=== PATIENT | female | born 1945 | race African-American/Black ===

== ENCOUNTER 2017-08-25 12:01 | Emergency (ER) | payer OTHER ==
[~2017-08-25] VITALS: Ht 175.3 cm; Wt 84.0 kg
[~2017-08-25 12:01] MED LIST: AMLO10 PO; DYAZ37.52 PO; VITAMINS
[2017-08-25 12:57] VITALS: BP 144/69; PULSE 59; RESP 18; TEMP 98.6; O2SAT 94
--- NOTE | 2017-08-25 13:37 | PD ---
HPI Chief Complaint: Dizziness Time Seen by Provider: 13:09 Travel History International Travel<30 days: No Contact w/Intl Traveler<30days: No Traveled to known affect area: No History of Present Illness HPI 72-year-old female that presents to the ED for evaluation of dizziness. Patient had a dizzy spell where she felt lightheaded like she was given pain that lasted for about 5 minutes. Per patient he went away on its own. 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 She was able to lay down and the symptoms improve on their own. She did not lose consciousness. She denies ever having anything like this before. Per patient she did eat a full meal today. She denies any history of diabetes. She denies any history of cardiac disease or stroke. No blood thinner use. No head injury or loss of consciousness. Patient is completely is symptomatic at this time. No numbness, tingling, weakness. No urinary or bowel movement issues. No pain of any kind. Has not seen anybody for this. Was brought here by ambulance for evaluation of this. Denies any chest pain or shortness of breath. PFSH Past Medical History Heart Rhythm Problems: No Cardiac Catheterization: No Cardiovascular Problems: No High Cholesterol: Yes Congestive Heart Failure: No Diabetes: No Hypertension: Yes Myocardial Infarction: No ?: Not Past Surgical History Appendectomy: Yes Coronary Artery Bypass Graft: No Social History Alcohol Use: No Tobacco Use: Yes (10 CIGARETTES A DAY) Substance Use: No Allergies-Medications (Allergen,Severity, Reaction): Coded Allergies: No Known Allergies (Verified , 01/11/11) Reported Meds & Prescriptions Reported Meds & Active Scripts Active Reported Norvasc (Amlodipine Besylate) 10 Mg Tab 10 Mg PO DAILY [Vitamins] Dyazide (Triamterene/HCTZ) 37.5 Mg/25 Mg Cap 1 Cap PO DAILY 37.5/25 Review of Systems Except as stated in HPI: all other systems reviewed are Neg Physical Exam Narrative GENERAL: SKIN: Warm and dry. HEAD: Atraumatic. Normocephalic. EYES: Pupils equal and round. No scleral icterus. No injection or drainage. ENT: No nasal bleeding or discharge. Mucous membranes pink and moist. Tongue is midline. No uvula deviation. NECK: Trachea midline. No JVD. CARDIOVASCULAR: Regular rate and rhythm. No murmurs, S3, S4. RESPIRATORY: No accessory muscle use. Clear to auscultation. Breath sounds equal bilaterally. GASTROINTESTINAL: Abdomen soft, non-tender, nondistended. Hepatic and splenic margins not palpable. MUSCULOSKELETAL: Extremities without clubbing, cyanosis, or edema. No obvious deformities. Full range of motion of the upper and lower extremities bilaterally. 2+ pulses bilaterally. NEUROLOGICAL: Awake and alert. No obvious cranial nerve deficits. Motor grossly within normal limits. Five out of 5 muscle strength in the arms and legs. Normal speech. PSYCHIATRIC: Appropriate mood and affect; insight and judgment normal. Data Data Last Documented VS Vital Signs Date Time Temp Pulse Resp B/P (MAP) Pulse Ox O2 Delivery O2 Flow Rate FiO2 08/25/17 12:57 98.6 59 18 144/69 (94) 94 Orders Orders Electrocardiogram (08/25/17 13:18) Complete Blood Count With Diff (08/25/17 13:18) Comprehensive Metabolic Panel (08/25/17 13:18) Ckmb (Isoenzyme) Profile (08/25/17 13:18) Troponin I (08/25/17 13:18) Prothrombin Time / Inr (Pt) (08/25/17 13:18) Act Partial Throm Time (Ptt) (08/25/17 13:18) Urinalysis - C+S If Indicated (08/25/17 13:18) Magnesium (Mg) (08/25/17 13:18) Thyroid Stimulating Hormone (08/25/17 13:18) Chest, Single Ap (08/25/17 13:18) Ct Brain W/O Iv Contrast(Rout) (08/25/17 13:18) Iv Access Insert/Monitor (08/25/17 13:18) Ecg Monitoring (08/25/17 13:18) Oximetry (08/25/17 13:18) Orthostatic Vital Signs (08/25/17 13:18) MDM Medical Decision Making Medical Screen Exam Complete: Yes Emergency Medical Condition: Yes Medical Record Reviewed: Yes Differential Diagnosis Syncope versus presyncope versus dizziness versus lightheadedness versus vasovagal episode versus cardiac syncope Narrative Course 72-year-old female that presents to the ED for evaluation of dizziness. Patient was properly examined and was found to have signs and symptoms consistent appears to be lightheadedness. Unclear etiology. Patient does have some comorbidities. Labs and imaging were ordered. Patient will be signed out to incoming provider pending disposition and plan. Alberto More Aug 25, 2017 13:37
--- NOTE | 2017-08-25 13:40 | RADRPT ---
EXAM DATE/TIME: 08/25/2017 13:27 [facility] COMPARISON: No previous studies available for comparison. INDICATIONS : Dizziness. MEDICAL HISTORY : None. SURGICAL HISTORY : None. ENCOUNTER: Initial ACUITY: 1 day PAIN SCORE: 0/10 LOCATION: Bilateral chest FINDINGS: A single view of the chest demonstrates the lungs to be symmetrically aerated without evidence of mas s, infiltrate or effusion. Hyperaeration bilaterally. The cardiomediastinal contours are unremarkabl e. Osseous structures are intact. CONCLUSION: No acute disease. Cameron Vega MD on August 25, 2017 at 13:38 Board Certified Radiologist. This report was verified electronically.
--- NOTE | 2017-08-25 13:50 | RADRPT ---
EXAM DATE/TIME: 08/25/2017 13:32 [facility] COMPARISON: No previous studies available for comparison. INDICATIONS : Syncope, dizziness RADIATION DOSE: 56.35 CTDIvol (mGy) MEDICAL HISTORY : Hypertension. SURGICAL HISTORY : None. ENCOUNTER: Initial ACUITY: 1 day PAIN SCALE: 0/10 LOCATION: cranial TECHNIQUE: Multiple contiguous axial images were obtained of the head. Using automated exposure control and adj ustment of the mA and/or kV according to patient size, radiation dose was kept as low as reasonably a chievable to obtain optimal diagnostic quality images. DICOM format image data is available electro nically for review and comparison. FINDINGS: CEREBRUM: The ventricles are normal for age. There is decreased attenuation in the periventricular white matter most consistent with moderate microvascular ischemic demyelinative change. No evidence of midline sh ift, mass lesion, hemorrhage or acute infarction. No extra-axial fluid collections are seen. POSTERIOR FOSSA: The cerebellum and brainstem are intact. The 4th ventricle is midline. The cerebellopontine angle i s unremarkable. EXTRACRANIAL: The visualized portion of the orbits is intact. SKULL: The calvaria is intact. No evidence of skull fracture. CONCLUSION: 1. Moderate microvascular ischemic demyelinative change. No acute intracranial abnormality identified . Enrique Montano MD on August 25, 2017 at 13:46 Board Certified Radiologist. This report was verified electronically.
[2017-08-25 14:16] LABS: AUTOMATED NEUTROPHIL # 4.8 TH/MM3 (1.8-7.7); BASOPHIL # 0.1 TH/MM3 (0-0.2); BASOPHIL % 1.1 % (0.0-2.0); EOSINOPHIL # 0.5 TH/MM3 (0-0.4); EOSINOPHIL % 6.6 % (0.0-4.0); HEMATOCRIT 41.8 % (35.0-46.0); HEMOGLOBIN 13.8 GM/DL (11.6-15.3); LYMPH % 21.8 % (9.0-44.0); LYMPHOCYTE # 1.7 TH/MM3 (1.0-4.8); MEAN CELL VOLUME 90.2 FL (80.0-100.0); MEAN CORPUSCULAR HEMOGLOBIN 29.8 PG (27.0-34.0); MEAN CORPUSCULAR HGB CONC 33.1 % (32.0-36.0); MEAN PLATELET VOLUME 8.4 FL (7.0-11.0); MONO % 7.9 % (0.0-8.0); MONOCYTE # 0.6 TH/MM3 (0-0.9); NEUT % 62.6 % (16.0-70.0); PLATELET COUNT 222 TH/MM3 (150-450); RED BLOOD COUNT 4.63 MIL/MM3 (4.00-5.30); RED CELL DISTRIBUTION WIDTH 14.7 % (11.6-17.2); WHITE BLOOD COUNT 7.6 TH/MM3 (4.0-11.0)
[2017-08-25 14:31] LABS: INTERNATIONAL NORMALIZED RATIO 0.9 RATIO; PROTHROMBIN TIME - PATIENT 9.6 SEC (9.8-11.6)
[2017-08-25 14:35] LABS: ALBUMIN 3.9 GM/DL (3.4-5.0); AST (GOT) 29 U/L (15-37); BICARBONATE 24.6 MEQ/L (21.0-32.0); BLOOD UREA NITROGEN 24 MG/DL (7-18); CALCIUM 9.8 MG/DL (8.5-10.1); CHLORIDE 107 MEQ/L (98-107); CREATININE 0.91 MG/DL (0.50-1.00); GLOMERULAR FILTRATION RATE 73 ML/MIN (>89); GLUCOSE,RANDOM 99 MG/DL (74-106); SODIUM (NA) 140 MEQ/L (136-145)
[2017-08-25 14:47] LABS: ALKALINE PHOSPHATASE 173 U/L (45-117); ALT (GPT) 29 U/L (10-53); TOTAL BILIRUBIN ADULT 0.4 MG/DL (0.2-1.0); TOTAL PROTEIN 7.4 GM/DL (6.4-8.2); TROPONIN I LESS THAN 0.02 NG/ML (0.02-0.05)
[2017-08-25 14:50] VITALS: BP 127/74; PULSE 72; RESP 16; O2SAT 98
[2017-08-25 15:01] VITALS: O2SAT 98
[2017-08-25] MEDS ORDERED: AMLO5TAB2 PO (15:06)
[2017-08-25] MEDS ORDERED: METO50TA PO (15:06)
[2017-08-25] MEDS ORDERED: HYDR12.57 PO (15:06)
[2017-08-25] MEDS ORDERED: LOSA50TA PO (15:06)
[2017-08-25] MEDS ORDERED: ATOR10TA15 PO (15:06)
--- NOTE | 2017-08-25 15:14 | PD ---
Physical Exam Date Seen by Provider: Aug 25, 2017 Narrative 72y pleasant female presents to the ED c/o dizziness that occurred after standing up from a seated position today. Says she had a vertiginous feeling which resolved spontaneously after 5 minutes. Currently denies dizziness, weakness, chest pain, SOB, nausea, vomiting, diarrhea. Denies history of previous episodes like this. Please refer to Alberto More PA-C note as well regarding this Pt. Pt was able to stand and ambulate on her own accord to the restroom during the visit today. She currently denies any symptoms. DANIELLE, finger to nose, heel to marinelli within normal limits today. Last Impressions Head CT 08/25/17 1318 Signed Impressions: Service Date/Time: Friday, August 25, 2017 13:32 - CONCLUSION: 1. Moderate microvascular ischemic demyelinative change. No acute intracranial abnormality identified. Enrique Montano MD Chest X-Ray 08/25/178 Signed Impressions: Service Date/Time: Friday, August 25, 2017 13:27 - CONCLUSION: No acute disease. Cameron Vega MD CBC & BMP Diagram 08/25/17 14:01 Total Protein 7.4, Albumin 3.9, Calcium Level 9.8, Magnesium Level 2.0, Alkaline Phosphatase 173 H, Aspartate Amino Transf (AST/SGOT) 29, Alanine Aminotransferase (ALT/SGPT) 29, Total Bilirubin 0.4 After discussion of the imaging studies and labs, patient states that she did have salsa which has made her dizzy previously. Says she has also prior to this episode which may been the cause of this episode. She is concerned that maybe it had too much salt. Patient be discharged advised to follow-up with primary care physician. Consider neurology based off the CT today, although findings are chronic rather than acute. Data Data Last Documented VS Vital Signs Date Time Temp Pulse Resp B/P (MAP) Pulse Ox O2 Delivery O2 Flow Rate FiO2 08/25/17 15:01 98 08/25/17 14:50 72 16 127/74 (91) 08/25/17 13:20 Room Air 08/25/17 12:57 98.6 Orders Orders Electrocardiogram (08/25/17 13:18) Complete Blood Count With Diff (08/25/17 13:18) Comprehensive Metabolic Panel (08/25/17 13:18) Ckmb (Isoenzyme) Profile (08/25/17 13:18) Troponin I (08/25/17 13:18) Prothrombin Time / Inr (Pt) (08/25/17 13:18) Act Partial Throm Time (Ptt) (08/25/17 13:18) Urinalysis - C+S If Indicated (08/25/17 13:18) Magnesium (Mg) (08/25/17 13:18) Thyroid Stimulating Hormone (08/25/17 13:18) Chest, Single Ap (08/25/17 13:18) Ct Brain W/O Iv Contrast(Rout) (08/25/17 13:18) Iv Access Insert/Monitor (08/25/17 13:18) Ecg Monitoring (08/25/17 13:18) Oximetry (08/25/17 13:18) Orthostatic Vital Signs (08/25/17 13:18) CKMB (08/25/17 14:01) CKMB% (08/25/17 14:01) Ed Discharge Order (08/25/17 16:22) Labs Laboratory Tests Test 08/25/17 14:01 08/25/17 15:10 White Blood Count 7.6 TH/MM3 Red Blood Count 4.63 MIL/MM3 Hemoglobin 13.8 GM/DL Hematocrit 41.8 % Mean Corpuscular Volume 90.2 FL Mean Corpuscular Hemoglobin 29.8 PG Mean Corpuscular Hemoglobin Concent 33.1 % Red Cell Distribution Width 14.7 % Platelet Count 222 TH/MM3 Mean Platelet Volume 8.4 FL Neutrophils (%) (Auto) 62.6 % Lymphocytes (%) (Auto) 21.8 % Monocytes (%) (Auto) 7.9 % Eosinophils (%) (Auto) 6.6 % Basophils (%) (Auto) 1.1 % Neutrophils # (Auto) 4.8 TH/MM3 Lymphocytes # (Auto) 1.7 TH/MM3 Monocytes # (Auto) 0.6 TH/MM3 Eosinophils # (Auto) 0.5 TH/MM3 Basophils # (Auto) 0.1 TH/MM3 CBC Comment DIFF FINAL Differential Comment Prothrombin Time 9.6 SEC Prothromb Time International Ratio 0.9 RATIO Activated Partial Thromboplast Time 20.3 SEC Blood Urea Nitrogen 24 MG/DL Creatinine 0.91 MG/DL Random Glucose 99 MG/DL Total Protein 7.4 GM/DL Albumin 3.9 GM/DL Calcium Level 9.8 MG/DL Magnesium Level 2.0 MG/DL Alkaline Phosphatase 173 U/L Aspartate Amino Transf (AST/SGOT) 29 U/L Alanine Aminotransferase (ALT/SGPT) 29 U/L Total Bilirubin 0.4 MG/DL Sodium Level 140 MEQ/L Potassium Level 4.4 MEQ/L Chloride Level 107 MEQ/L Carbon Dioxide Level 24.6 MEQ/L Anion Gap 8 MEQ/L Estimat Glomerular Filtration Rate 73 ML/MIN Total Creatine Kinase 196 U/L Creatine Kinase MB 2.6 NG/ML Creatine Kinase MB % 1.3 % Troponin I LESS THAN 0.02 NG/ML Thyroid Stimulating Hormone 3rd Gen 1.420 uIU/ML Urine Color YELLOW Urine Turbidity CLEAR Urine pH 6.0 Urine Specific Martin 1.022 Urine Protein TRACE mg/dL Urine Glucose (UA) NEG mg/dL Urine Ketones NEG mg/dL Urine Occult Blood NEG Urine Nitrite NEG Urine Bilirubin NEG Urine Urobilinogen LESS THAN 2.0 MG/DL Urine Leukocyte Esterase NEG Urine RBC 1 /hpf Urine WBC LESS THAN 1 /hpf Urine Bacteria RARE /hpf Urine Hyaline Casts 1 /lpf Microscopic Urinalysis Comment CULT NOT INDICATED MDM Supervised Visit with LINDA: No Diagnosis Primary Impression: Vertigo Referrals: Primary Care Physician Departure Forms: Tests/Procedures, Work Release Enter return to work date: Aug 27, 2017 Additional Instruction: Recommend taking using a stool at work as needed. If you feel dizzy or lightheaded again, return to the ED. Follow up with your PCP this week. Disposition: 01 DISCHARGE HOME Condition: Stable Kaylyn Goodson Aug 25, 2017 15:14
[2017-08-25 16:12] LABS: BACTERIA, URINE RARE /hpf; BILIRUBIN, URINE NEG (NEG); BLOOD, URINE NEG (NEG); GLUCOSE,URINE NEG (NEG); HYALINE CAST, URINE 1 /lpf (RARE); KETONE, URINE NEG (NEG); NITRITE,URINE NEG (NEG); URINE COLOR YELLOW (YELLW/STRAW); URINE LEUKOCYTE ESTERASE NEG (NEG)
--- NOTE | 2017-08-26 20:52 | EKG ---
Date Performed: 08/25/2017 Time Performed: 14:30:22 PTAGE: 72 years EKG: SINUS BRADYCARDIA BORDERLINE ECG PREVIOUS TRACING : 01/11/2011 11.47 Compared to previous tracing sinus bradycardia is new DOCTOR: Román Mireles Interpretating Date/Time 08/26/2017 20:51:17
== END 2017-08-25 17:02 | disposition home or self-care (01) ==
LOC: NEDAMB 12:01 → NEPA 17:02
DX: R42 Dizziness and giddiness (principal); I10 Essential (primary) hypertension; F17.210 Nicotine dependence, cigarettes, uncomplicated; R00.1 Bradycardia, unspecified; Z79.899 Other long term (current) drug therapy
CPT/HCPCS: 70450; 71045; 80053; 81001; 82550; 82552; 83735; 84443; 84484; 85025; 85610; 85730; 93005